=== PATIENT | male | born 1940 | race Caucasian/White ===

== ENCOUNTER 2016-10-27 08:00 | Day surgery (SDC) | payer OTHER, MEDICAID ==
--- NOTE | 2016-10-27 07:49 | CPEKG ---
Heart Rate: 64 RR Interval: 938 P-R Interval: 232 QRSD Interval: 112 QT Interval: 428 QTC Interval: 442 P Mary D: 44 QRS Mary D: 75 T Wave Mary D: 12 EKG Severity - ABNORMAL ECG - EKG Impression: SINUS RHYTHM EKG Impression: FIRST DEGREE AV BLOCK EKG Impression: NONSPECIFIC INTRAVENTRICULAR CONDUCTION DELAY Electronically Signed By: Kaleb Mckenzie 29-Oct-2016 12:42:44
[~2016-10-27 08:00] MED LIST: BUPIVACAINE 0.5% 30 ML SDV ONE; PAPAVERINE HCL 60 MG/2 ML SDV ONE; PROTAMINE SULFATE 50 MG/5 ML VIAL IVP ONE; THROMBIN (BOVINE) 20,000 UNIT SPRAY TP ONE; THROMBIN (BOVINE) 5,000 UNIT VIAL TP ONE
[2016-10-27 09:10] LABS: % IMMATURE GRANULYOCYTES 0.6 % (0.0-1.1); ABSOLUTE IMMATURE GRANULOCYTES 0.05 10^3/uL (0.00-0.10); ADD DIFF? NO; ADD MORPH? NO; ADD SCAN? NO; ATYPICAL LYMPHOCYTE FLAG 0 (0-99); FRAGMENT RBC FLAG 0 (0-99); HEMATOCRIT 30.2 % (40.0-51.0); HEMOGLOBIN 10.1 g/dL (13.7-17.5); LEFT SHIFT FLG 0 (0-99); LIPEMIA HEMOLYSIS FLAG 80 (0-99); MEAN CELL HEMOGLOBIN 32.2 pg (27.9-34.1); MEAN CELL HEMOGLOBIN CONCENTR. 33.4 g/dL (32.4-36.7); MEAN CELL VOLUME 96.2 fL (81.5-99.8); MEAN PLATELET VOLUME 9.5 fL (8.7-11.7); PLATELET CLUMPS FLAG 0 (0-99); PLATELET COUNT 220 10^3/uL (150-400); RED BLOOD CELL COUNT 3.14 10^6/uL (4.40-6.38); RED CELL DISTRIBUTION WIDTH 14.4 % (11.5-15.2)
[2016-10-27 09:24] LABS: ANION GAP 13 mEq/L (8-16); CALCIUM 9.4 mg/dL (8.5-10.4); CARBON DIOXIDE 27 mEq/l (22-31); CHLORIDE 96 mEq/L (97-110); CREATININE 5.2 mg/dL (0.7-1.3); GLOMERULAR FILTRATION RATE 11; GLUCOSE 88 mg/dL (70-100); POTASSIUM 4.4 mEq/L (3.5-5.2); SODIUM 136 mEq/L (134-144)
[2016-10-27] MEDS ORDERED: ceFAZolin 2 GM/DEXTROSE 100 ML IV ONE (09:30)
[2016-10-27] MEDS ORDERED: fentaNYL 100 MCG/2 ML INJ ONE ×3 (09:33→11:21)
[2016-10-27] MEDS ORDERED: LIDOCAINE 2% 5 ML SDV ONE (09:35)
[2016-10-27] MEDS ORDERED: DEXAMETHASONE 4 MG/ML VIAL ONE ×2 (09:35→09:40)
[2016-10-27] MEDS ORDERED: PROPOFOL/EMULSION 500 MG/50 ML BOTTLE IV ONE (09:35)
[2016-10-27] MEDS ORDERED: CISATRACURIUM BESYLATE 20 MG/10 ML VIAL IV ONE (09:54)
[2016-10-27] MEDS ORDERED: BUPIVACAINE 0.5% 30 ML SDV ONE (10:16)
[2016-10-27] MEDS ORDERED: HYDROCODONE/APAP 5/325 TAB ONE (11:28)
--- NOTE | 2016-10-27 13:27 | GOP ---
[f rep st] OPERATIVE REPORT DATE OF OPERATION: 10/27/2016 SURGEON: Wilbert Colunga MD CIRCULAR SAW FILER: Elizabeth Herbert PA-C. ANESTHESIOLOGIST: Michelle Fraser MD. He had good fistula flow and position after completion of this procedure. PREOPERATIVE DIAGNOSIS: Chronic renal failure with an arteriovenous fistula that is difficult to access. POSTOPERATIVE DIAGNOSIS: Chronic renal failure with an arteriovenous fistula that is difficult to access. PROCEDURE PERFORMED: 1. Ultrasound vein mapping left arm. 2. Left arm arteriovenous fistula transposition and ligation of collaterals. FINDINGS: distal AVF 2 cm deep but strong ESTIMATED BLOOD LOSS: Less than 20 cc. There were no complications. DESCRIPTION OF PROCEDURE: Patient taken to the operating room where he received satisfactory general endotracheal anesthesia by Dr. Fraser, placed in supine position with the left arm outstretched on an arm board, prepped and draped in the usual sterile fashion. The ultrasound was used to map the collaterals of the AV fistula as well as position the AV fistula deep in the upper arm. A longitudinal incision was then made along the course of the AV fistula. Dissection extended down through the subcutaneous tissue until the AV fistula was exposed. It was dissected free from near the axilla all the way down to the portion of the AV fistula is being used for dialysis. Multiple branches were hemoclipped and divided. A large collateral was doubly ligated with 2-0 silks and divided. The vein was freed up circumferentially. Skin flap was then created laterally, and the subcu was then closed below the vein with a running 3-0 Vicryl suture elevating the vein up to the subdermal position. A second layer of 3-0 Vicryl was then used to close the skin over this. Wound was infiltrated with 0.5% Marcaine, was also sprayed with some topical thrombin. Hemostasis was assured. The skin was then closed with skin emma. The patient tolerated the procedure well. Copy requested to: Dr. Mookie Mcbride /[id number]/MODL MTDD
== END 2016-10-27 12:25 | disposition home or self-care (01) ==
LOC: FSGY 08:00
PROVIDERS: ATTEND Surgery
PROC: [UNRECOGNIZED PROCEDURE] (principal; 2016-10-27 09:15)
DX: N18.9 Chronic kidney disease, unspecified (principal)
CPT/HCPCS: J0690; J1100; J1644; J2440; J2704; J2720; J3010

== ENCOUNTER → 2016-12-16 | Outpatient (CLI) | payer OTHER, MEDICAID | LOC: SBRMNEURO 20:00 | PROVIDERS: ATTEND Physician Assistant Medical | DX: G47.33 Obstructive sleep apnea (adult) (pediatric) (principal) ==

== ENCOUNTER → 2017-02-09 | Outpatient (CLI) | payer OTHER, MEDICAID | LOC: FIMAGING 14:51 | PROVIDERS: ATTEND Internal Medicine | DX: R06.02 Shortness of breath (principal); Z72.0 Tobacco use; I10 Essential (primary) hypertension | CPT/HCPCS: 90662-PO; G0008-PO; G0463-PO ==

== ENCOUNTER → 2017-05-04 | Outpatient (CLI) | payer OTHER, MEDICAID | LOC: BHFA 09:00 | PROVIDERS: ATTEND Internal Medicine Cardiovascular Disease | DX: R06.02 Shortness of breath (principal); I10 Essential (primary) hypertension | CPT/HCPCS: 78452; 93017; A9500; J2785 ==

== ENCOUNTER → 2017-06-21 | Outpatient (CLI) | payer OTHER, MEDICAID | LOC: FIMAGING 13:06 | PROVIDERS: ATTEND Internal Medicine Nephrology | DX: R06.02 Shortness of breath (principal) ==